=== PATIENT | female | born 1990 | race Caucasian/White ===

== ENCOUNTER 2016-03-07 23:57 | Emergency (ER) | payer SELFPAY ==
[~2016-03-07] VITALS: Ht 160 cm; Wt 45.0 kg
[~2016-03-07 23:57] MED LIST: ZOFR4TAB3 SL
[2016-03-08 00:09] VITALS: BP 140/95; PULSE 98; RESP 15; TEMP 98; O2SAT 98
--- NOTE | 2016-03-08 00:24 | PD ---
HPI Chief Complaint: Lump, Cyst, Hernia Time Seen by Provider: 00:15 Travel History International Travel<30 days: No Contact w/Intl Traveler<30days: No Traveled to known affect area: No History of Present Illness HPI This patient was examined in the presence of a female nurse. 25-year-old female presents for evaluation of an abscess in the left groin. Symptoms started 3 days ago. The pain is throbbing, constant, worse with palpation. She does endorse shaving in the genital region on a regular basis, most recently 4 days ago. Denies any drainage, vaginal discharge, fever/chills. She has no significant past medical history. No other complaints at this time. PFSH Past Medical History Hx Anticoagulant Therapy: No Anxiety: Yes Depression: Yes Cardiovascular Problems: No Chemotherapy: No Cerebrovascular Accident: No Diabetes: No Diminished Hearing: No Psychiatric: Yes Respiratory: No Immunizations Current: No Tetanus Vaccination: Unknown Influenza Vaccination: No ?: Not LMP: 02/04/16 : 1 Para: 0 Miscarriage: 1 : 0 Past Surgical History Hysterectomy: No Social History Alcohol Use: Yes Tobacco Use: No Substance Use: No (denies) Allergies-Medications (Allergen,Severity, Reaction): Coded Allergies: No Known Allergies (Unverified , 03/08/16) Reported Meds & Prescriptions Reported Meds & Active Scripts Active Keflex (Cephalexin) 500 Mg Cap 500 Mg PO Q6H 10 Days Bactrim DS (Sulfamethoxazole-Trimethoprim) 800-160 Mg Tab 1 Tab PO BID Zofran Odt (Ondansetron Odt) 4 Mg Tab 4 Mg SL Q6HR PRN Review of Systems Except as stated in HPI: all other systems reviewed are Neg Physical Exam Narrative Examined in the presence of a female nurse GENERAL: Well-developed well-nourished female in no acute distress SKIN: Warm and dry. In the left labial fold at the 2 o'clock position there is a 3 cm area of cutaneous fluctuance which is tender to palpation. No drainage. CARDIOVASCULAR: Regular rate and rhythm. No murmur appreciated. RESPIRATORY: No accessory muscle use. Clear to auscultation. Breath sounds equal bilaterally. Data Data Last Documented VS Vital Signs Date Time Temp Pulse Resp B/P Pulse Ox O2 Delivery O2 Flow Rate FiO2 03/08/16 00:09 98.0 98 15 140/95 98 Room Air Orders Lidocai-Epi 1%-1:100,000 Inj (Xylocaine- (03/08/16 00:30) Wound Culture And Gram Stain (03/08/16 00:21) Sulfamet-Trimeth Ds 800-160 Mg (Bactrim (03/08/16 00:45) Cephalexin (Keflex) (03/08/16 00:45) Acetamin-Hydrocod 325-5 Mg ([place] 5-325 (03/08/16 00:45) Ondansetron Odt (Zofran Odt) (03/08/16 00:45) [facility] Medical Decision Making Medical Screen Exam Complete: Yes Emergency Medical Condition: Yes Medical Record Reviewed: Yes Differential Diagnosis Left labial abscess, Bartholin gland cyst, cellulitis Narrative Course 25-year-old female presents with soft tissue swelling and tenderness to the left upper labial fold for the past 3 days. Examination reveals a left upper labial abscess. The patient verbally consents to incision and drainage. She understands the risk of scarring. Procedure was performed successfully. Wound culture performed. The patient will be discharged with Bactrim, Keflex. Discussed signs and symptoms of worsening infection noted or to return to the emergency room. Procedures Procedure Narrative INCISION AND DRAINAGE OF ABSCESS: The area was prepped and was sterilely draped. A subcutaneous wheal of 1% Xylocaine with epinephrine with a total number 7 mL was used to anesthetize the area. The area was properly anesthetized. A number 11 scalpel was used to make a 1 -cm incision across the area of the abscess. Cultures were obtained. The abscess was drained an irrigated with normal saline. Diagnosis Primary Impression: Labial abscess Additional Instructions: Take the antibiotics as prescribed. Warm baths 2-3 times a day 15 minutes at a time. Keep area clean and covered. Monitor for signs of worsening infection such as increasing redness, increasing swelling, fevers which would warrant return to the emergency room. Med/Other Pt SpecificInfo: Prescription(s) given, Wound Care Scripts Cephalexin (Keflex)500 Mg [id number] Mg PO Q6H 10 Days Ref 0 Prov:Arley Dinh MD 03/08/16 Sulfamethoxazole-Trimethoprim (Bactrim DS)800-160 Mg Tab1 Tab PO BID #20 TAB Ref 0 Prov:Arley Dinh MD 03/08/16 Disposition: 01 DISCHARGE HOME Condition: Stable Constantine Duran Mar 08, 2016 00:24
[2016-03-08] MEDS ORDERED: LIDOCAINE 1%/EPINEPHrine 1:100,000 SOLN 20 ML VIAL INFIL ONE (00:30)
[2016-03-08] MEDS ORDERED: SULFAMETHOXAZOLE-TRIMETHOPRIM DS 800-160 MG TAB PO ONE (00:45)
[2016-03-08] MEDS ORDERED: ONDANSETRON ODT 4 MG TAB PO ONE (00:45)
[2016-03-08] MEDS ORDERED: ACETAMINOPHEN/HYDROcodone 325 MG/5 MG TAB PO ONE (00:45)
[2016-03-08] MEDS ORDERED: CEPHALEXIN MONOHYDRATE 500 MG CAP PO ONE (00:45)
[2016-03-08] MEDS ORDERED: CEPH-460 PO (00:51)
[2016-03-08] MEDS ORDERED: BACT800T5 PO (00:51)
== END 2016-03-08 01:25 | disposition home or self-care (01) ==
LOC: NEPB 23:57
DX: N76.4 Abscess of vulva (principal); B96.89 Other specified bacterial agents as the cause of diseases classified elsewhere; Z86.59 Personal history of other mental and behavioral disorders
CPT/HCPCS: 56405; 86403; 87070; 87185

== ENCOUNTER 2016-04-12 11:29 | Emergency (ER) | payer SELFPAY ==
[~2016-04-12] VITALS: Ht 160 cm; Wt 45.0 kg
[~2016-04-12 11:29] MED LIST changes: +BACT800T5 PO; +CEPH-460 PO
[2016-04-12 11:30] VITALS: BP 116/67; PULSE 82; RESP 20; TEMP 98.1; O2SAT 100
--- NOTE | 2016-04-12 11:51 | PD ---
HPI Chief Complaint: Skin Problem Time Seen by Provider: 11:51 Travel History International Travel<30 days: No Contact w/Intl Traveler<30days: No Traveled to known affect area: No History of Present Illness HPI 25-year-old female presents to the emergency Department with rash to both feet, ankles, lower legs, and hands or arms over the past week. Patient recently moved is questioning whether she has been exposed to something, or has had bites from bed bugs or fleas. She denies fever, chills, recent viral illness, difficulty breathing, sneezing, or watery eyes. Patient denies any recent exposures other than moving and cleaning supplies. She has no other acute complaints. No known drug allergies. PFSH Past Medical History Hx Anticoagulant Therapy: No Anxiety: Yes Depression: Yes Cardiovascular Problems: No Chemotherapy: No Cerebrovascular Accident: No Diabetes: No Diminished Hearing: No Psychiatric: Yes Respiratory: No Immunizations Current: No ?: Not LMP: CURRENTLY ON PERIOD : 1 Para: 0 Miscarriage: 1 : 0 Past Surgical History Hysterectomy: No Social History Alcohol Use: Yes Tobacco Use: No Substance Use: No (denies) Allergies-Medications (Allergen,Severity, Reaction): Coded Allergies: No Known Allergies (Unverified , 04/12/16) Reported Meds & Prescriptions Reported Meds & Active Scripts Active Benadryl Allergy (Diphenhydramine HCl) 25 Mg Tab 25 Mg PO Q6H PRN 10 Days Qing Allergy (Fexofenadine HCl) 180 Mg Tab 180 Mg PO DAILY Keflex (Cephalexin) 500 Mg Cap 500 Mg PO Q6H 10 Days Bactrim DS (Sulfamethoxazole-Trimethoprim) 800-160 Mg Tab 1 Tab PO BID Zofran Odt (Ondansetron Odt) 4 Mg Tab 4 Mg SL Q6HR PRN Review of Systems Except as stated in HPI: all other systems reviewed are Neg General / Constitutional: No: Fever Eyes: No: Visual changes HENT: No: Headaches Cardiovascular: No: Chest Pain or Discomfort Respiratory: No: Shortness of Breath Gastrointestinal: No: Abdominal Pain Genitourinary: No: Dysuria Musculoskeletal: No: Pain Skin: Positive Rash, Positive Itching Neurologic: No: Weakness Psychiatric: No: Depression Endocrine: No: Polydipsia Hematologic/Lymphatic: No: Easy Bruising Physical Exam Narrative GENERAL: Patient appears no acute distress. SKIN: Warm and dry. Normal color. Normal turgor. Patient has somewhat raised erythematous "blotches" to the top of her toes, dorsal distal feet, twisting her fingers and on her wrist consistent with atopic dermatitis. I see no signs of scabies or insect bites at this time. HEAD: Atraumatic. Normocephalic. EYES: Pupils equal and round. No scleral icterus. No injection or drainage. ENT: No nasal bleeding or discharge. Mucous membranes pink and moist. Airway is patent. Pharynx is normal. No sinus symptoms. TMs are clear bilaterally. NECK: Trachea midline. No JVD. CARDIOVASCULAR: Regular rate and rhythm. RESPIRATORY: No accessory muscle use. Clear to auscultation. Breath sounds equal bilaterally. MUSCULOSKELETAL: Extremities without clubbing, cyanosis, or edema. No obvious deformities. NEUROLOGICAL: Awake and alert. No obvious cranial nerve deficits. Motor grossly within normal limits. Five out of 5 muscle strength in the arms and legs. Normal speech. PSYCHIATRIC: Appropriate mood and affect; insight and judgment normal. Data Data Last Documented VS Vital Signs Date Time Temp Pulse Resp B/P Pulse Ox O2 Delivery O2 Flow Rate FiO2 04/12/16 11:30 98.1 82 20 116/67 100 Room Air MDM Medical Decision Making Medical Screen Exam Complete: Yes Emergency Medical Condition: Yes Differential Diagnosis Rash. Atopic dermatitis. Insect bites. Narrative Course Patient is Stable at time of exam. Patient is given prescription for Qing 180 mg daily. Patient is given a prescription for Benadryl 25 mg one every 6 hours when necessary itch. Patient is recommended to use [id number] Caladryl lotion. Patient follow-up with primary care physician or return to emergency department as needed. Diagnosis Primary Impression: Dermatitis Referrals: [facility] Patient Instructions: General Instructions Additional Instructions: Patient is given prescription for Qing 180 mg daily. Patient is given a prescription for Benadryl 25 mg one every 6 hours when necessary itch. Patient is recommended to use [id number] Caladryl lotion. Patient follow-up with primary care physician or return to emergency department as needed. Med/Other Pt SpecificInfo: Prescription(s) given Scripts Diphenhydramine (Benadryl Allergy)25 Mg Tab25 Mg PO Q6H PRN (ALLERGIES) 10 Days Ref 0 Prov:Caleb Silverio MD 04/12/16 Fexofenadine (Qing Allergy)180 Mg [id number] Mg PO DAILY #30 TAB Ref 0 Prov:Caleb Silverio MD 04/12/16 Disposition: 01 DISCHARGE HOME Condition: Stable Dimitry Jamil Apr 12, 2016 11:51
[2016-04-12] MEDS ORDERED: BENA25TA3 PO (12:42)
[2016-04-12] MEDS ORDERED: FEXO15TA PO (12:42)
== END 2016-04-12 13:06 | disposition home or self-care (01) ==
LOC: NEPB 11:29
DX: L30.9 Dermatitis, unspecified (principal)
CPT/HCPCS: 99283

== ENCOUNTER 2016-06-17 00:21 | Emergency (ER) | payer SELFPAY ==
[~2016-06-17 00:21] MED LIST changes: +BENA25TA3 PO; +FEXO15TA PO
[2016-06-17 00:22] VITALS: BP 129/82; PULSE 89; RESP 16; TEMP 98.9; O2SAT 98
[2016-06-17 01:56] VITALS: BP 135/69; PULSE 74; RESP 18; O2SAT 99
--- NOTE | 2016-06-17 02:30 | PD ---
HPI Chief Complaint: Bleeding Time Seen by Provider: 01:59 Travel History International Travel<30 days: No Contact w/Intl Traveler<30days: No Traveled to known affect area: No History of Present Illness HPI This is a 25-year-old female who presents to the emergency department with 2 weeks of vaginal bleeding. She says she's been changing a pad every half hour, constant, severe, associated with intermittent lower abdominal cramping. She also says she has burning when she used like someone is stabbing her in the urethra. She says intermittently she feels somewhat lightheaded and dizzy. She says normally her periods are regular. She doesn't think she could've been . PFSH Past Medical History Medical History: Denies Significant Hx Hx Anticoagulant Therapy: No Anxiety: Yes Depression: Yes Cardiovascular Problems: No Chemotherapy: No Cerebrovascular Accident: No Diabetes: No Diminished Hearing: No Psychiatric: Yes Respiratory: No Immunizations Current: No Tetanus Vaccination: Unknown Influenza Vaccination: No ?: Not LMP: 06/10/16 : 1 Para: 0 Miscarriage: 1 : 0 Past Surgical History Surgical History: No Previous Surgery Hysterectomy: No Social History Alcohol Use: Yes (occ) Tobacco Use: No Substance Use: No (denies) Allergies-Medications (Allergen,Severity, Reaction): Coded Allergies: No Known Allergies (Unverified , 06/17/16) Reported Meds & Prescriptions Reported Meds & Active Scripts Active No Active Prescriptions or Reported Medications Review of Systems Except as stated in HPI: all other systems reviewed are Neg Physical Exam Narrative GENERAL:Well appearing, no acute distress SKIN: Focused skin assessment warm and dry. HEAD: Atraumatic. Normocephalic. EYES: Pupils equal and round. No injection or drainage. ENT: Moist mucous membranes NECK: Trachea midline. CARDIOVASCULAR: Regular rate and rhythm. No murmur appreciated. RESPIRATORY: Clear to auscultation. Breath sounds equal bilaterally. GASTROINTESTINAL: Abdomen soft, non-tender, nondistended. MUSCULOSKELETAL: No obvious deformities. NEUROLOGICAL: Awake and alert. No obvious cranial nerve deficits. Moving all extremities. PSYCHIATRIC: Appropriate mood and affect; insight and judgment normal. Data Data Last Documented VS Vital Signs Date Time Temp Pulse Resp B/P Pulse Ox O2 Delivery O2 Flow Rate FiO2 06/17/16 01:56 74 18 135/69 99 Room Air 06/17/16 00:22 98.9 Orders Complete Blood Count With Diff (06/17/16 02:17) Ed Urine Pregnancytest Poc (06/17/16 02:17) Urinalysis - C+S If Indicated (06/17/16 02:17) Urine Culture (06/17/16 02:45) Labs Laboratory Tests Test 06/17/16 02:45 White Blood Count 8.8 TH/MM3 Red Blood Count 4.68 MIL/MM3 Hemoglobin 13.2 GM/DL Hematocrit 39.9 % Mean Corpuscular Volume 85.4 FL Mean Corpuscular Hemoglobin 28.3 PG Mean Corpuscular Hemoglobin 33.2 % Concent Red Cell Distribution Width 13.1 % Platelet Count 287 TH/MM3 Mean Platelet Volume 8.9 FL Neutrophils (%) (Auto) 59.7 % Lymphocytes (%) (Auto) 31.1 % Monocytes (%) (Auto) 5.5 % Eosinophils (%) (Auto) 3.0 % Basophils (%) (Auto) 0.7 % Neutrophils # (Auto) 5.3 TH/MM3 Lymphocytes # (Auto) 2.7 TH/MM3 Monocytes # (Auto) 0.5 TH/MM3 Eosinophils # (Auto) 0.3 TH/MM3 Basophils # (Auto) 0.1 TH/MM3 CBC Comment DIFF FINAL Differential Comment Urine Color RED Urine Turbidity HAZY Urine pH 5.5 Urine Specific [place] 1.026 Urine Protein 30 mg/dL Urine Glucose (UA) NEG mg/dL Urine Ketones TRACE mg/dL Urine Occult Blood LARGE Urine Nitrite NEG Urine Bilirubin NEG Urine Urobilinogen LESS THAN 2.0 MG/DL Urine Leukocyte Esterase SMALL Urine RBC /hpf Urine WBC 44 /hpf Urine Squamous Epithelial 2 /hpf Cells Urine Bacteria RARE /hpf Urine Mucus MANY /lpf Microscopic Urinalysis Comment CULTURE INDICATED MDM Medical Decision Making Medical Screen Exam Complete: Yes Emergency Medical Condition: Yes Interpretation(s) Afebrile, no tachycardia, normotensive No leukocytosis Urinalysis: Urinary tract infection Differential Diagnosis Menorrhagia, miscarriage, anemia, ectopic Narrative Course This is a 25-year-old female who presents to the emergency department with vaginal bleeding that's been going on for 2 weeks associated with some dysuria. Patient was placed on a monitor and an IV was established. Labs are obtained which demonstrated normal hemoglobin. Urinalysis is consistent with infection as are her symptoms. Pelvic exam demonstrates a moderate amount of bleeding with no brisk arterial bleeding. Patient can safely be discharged and follow- up with a fishing rod mechanic. She'll be given a prescription for antibiotics for her urinary tract infection. Diagnosis Primary Impression: Menorrhagia Qualified Code: N92.1 - Menorrhagia with irregular cycle Patient Instructions: General Instructions Additional Instructions: Heavy bleeding can be caused by many things including: - One of your ovaries not releasing an egg during one or more months - Growths in the uterus called fibroids - A bleeding disorder that prevents your blood from clotting normally - Side effects of some medicines, such as some types of control or blood thinners - A problem with your thyroid (a gland that makes hormones) Return to the emergency department if you: Need to use both tampons and pads at the same time because you are bleeding so much Need to change your pad or tampon during the night Or are feeling lightheaded, weak, dizzy, have chest pain, shortness of breath or are having difficulty exerting yourself Follow up with [facility] at: [facility] [address] [place] [address] Office Hours Friday 9:00 am 5:30 pm Friday 8:00 am 12:00 pm Tuesdays 4:00 6:30 pm Med/Other Pt SpecificInfo: Prescription(s) given Scripts Cephalexin (Keflex)500 Mg [id number] Mg PO Q12H 7 Days Ref 0 Prov:Kim Holt MD 06/17/16 Disposition: 01 DISCHARGE HOME Condition: Stable Kim Holt MD June 17, 2016 02:30
[2016-06-17 02:53] LABS: AUTOMATED NEUTROPHIL # 5.3 TH/MM3 (1.8-7.7); BASOPHIL # 0.1 TH/MM3 (0-0.2); BASOPHIL % 0.7 % (0.0-2.0); EOSINOPHIL # 0.3 TH/MM3 (0-0.4); HEMATOCRIT 39.9 % (35.0-46.0); HEMO FLAGS DIFF FINAL; LYMPH % 31.1 % (9.0-44.0); LYMPHOCYTE # 2.7 TH/MM3 (1.0-4.8); MEAN CELL VOLUME 85.4 FL (80.0-100.0); MEAN CORPUSCULAR HEMOGLOBIN 28.3 PG (27.0-34.0); MEAN CORPUSCULAR HGB CONC 33.2 % (32.0-36.0); MONO % 5.5 % (0.0-8.0); NEUT % 59.7 % (16.0-70.0); PLATELET COUNT 287 TH/MM3 (150-450); RED BLOOD COUNT 4.68 MIL/MM3 (4.00-5.30); RED CELL DISTRIBUTION WIDTH 13.1 % (11.6-17.2); WHITE BLOOD COUNT 8.8 TH/MM3 (4.0-11.0)
[2016-06-17 03:02] LABS: BACTERIA, URINE RARE /hpf; BLOOD, URINE LARGE (NEG); COMMENT (UR) CULTURE INDICATED; CULTURE IF INDICATED CULTURE INDICATED; GLUCOSE,URINE NEG (NEG); KETONE, URINE TRACE mg/dL (NEG); MUCUS URINE MANY /lpf (OCC); NITRITE,URINE NEG (NEG); PH, URINE 5.5 (5.0-8.5); SQUAMOUS EPITHELIAL CELL URINE 2 /hpf (0-5)
[2016-06-17 03:03] LABS: URINE COLOR RED (YELLW/STRAW)
[2016-06-17 03:48] VITALS: BP 122/71; PULSE 67; RESP 18; TEMP 98.1; O2SAT 100
[2016-06-17] MEDS ORDERED: CEPH-460 PO ×2 (03:50→03:53)
== END 2016-06-17 04:25 | disposition home or self-care (01) ==
LOC: NEPC 00:21
DX: N92.0 Excessive and frequent menstruation with regular cycle (principal); N39.0 Urinary tract infection, site not specified; B96.89 Other specified bacterial agents as the cause of diseases classified elsewhere
CPT/HCPCS: 81001; 84703; 85025; 87086; 99284

== ENCOUNTER 2016-07-22 02:15 | Emergency (ER) | payer SELFPAY ==
[~2016-07-22] VITALS: Ht 160 cm; Wt 55.0 kg
[~2016-07-22 02:15] MED LIST changes: -BACT800T5 PO; -BENA25TA3 PO; -FEXO15TA PO; -ZOFR4TAB3 SL
[2016-07-22 02:17] VITALS: BP 116/68; PULSE 72; RESP 16; TEMP 98.1; O2SAT 100
[2016-07-22] MEDS ORDERED: CEPH-460 PO (03:10)
--- NOTE | 2016-07-22 03:10 | PD ---
HPI Chief Complaint: Skin Problem Time Seen by Provider: 02:59 Travel History International Travel<30 days: No Contact w/Intl Traveler<30days: No Traveled to known affect area: No History of Present Illness HPI Patient is a 25-year-old female presents with a painful sore in the right inguinal region. States been present for the past few days and did start draining and now is just painful. Denies any fever denies any vaginal bleeding vaginal discharge dysuria. Denies any history of STDs. States the pain is minimal to moderate. PFSH Past Medical History Hx Anticoagulant Therapy: No Anxiety: Yes Depression: Yes Cardiovascular Problems: No Chemotherapy: No Cerebrovascular Accident: No Diabetes: No Diminished Hearing: No Psychiatric: Yes Respiratory: No Immunizations Current: No Tetanus Vaccination: Unknown Influenza Vaccination: No ?: Not LMP: 07/15/16 : 1 Para: 0 Miscarriage: 1 : 0 Past Surgical History Surgical History: No Previous Surgery Hysterectomy: No Social History Alcohol Use: Yes (occ) Tobacco Use: No Substance Use: No (denies) Allergies-Medications (Allergen,Severity, Reaction): Coded Allergies: No Known Allergies (Unverified , 06/17/16) Reported Meds & Prescriptions Reported Meds & Active Scripts Active Keflex (Cephalexin) 500 Mg Cap 500 Mg PO Q6H 7 Days Keflex (Cephalexin) 500 Mg Cap 500 Mg PO Q12H 7 Days Review of Systems Except as stated in HPI: all other systems reviewed are Neg Physical Exam Narrative GENERAL: Well-nourished, well-developed patient. SKIN: Focused skin assessment warm/dry. His very small less than 1 cm in diameter area of swelling of the right inguinal region. No surrounding erythema or induration. The skin on top is beginning to ulcerate and is raw. No fluctuance is noted. The pubic area is shaved, this exam was performed with female nurse remote sensing scientist present at all times. HEAD: Normocephalic. EYES: No scleral icterus. No injection or drainage. NECK: Supple, trachea midline. No JVD or lymphadenopathy. CARDIOVASCULAR: Regular rate and rhythm without murmurs, gallops, or rubs. RESPIRATORY: Breath sounds equal bilaterally. No accessory muscle use. GASTROINTESTINAL: Abdomen soft, non-tender, nondistended. MUSCULOSKELETAL: No cyanosis, or edema. BACK: Nontender without obvious deformity. No CVA tenderness. Data Data Last Documented VS Vital Signs Date Time Temp Pulse Resp B/P Pulse Ox O2 Delivery O2 Flow Rate FiO2 07/22/16 03:03 18 07/22/16 02:17 98.1 72 116/68 100 Room Air MDM Medical Decision Making Medical Screen Exam Complete: Yes Emergency Medical Condition: Yes Differential Diagnosis Folliculitis, healing abscess, cyst, LGV seems unlikely. Narrative Course Patient was roomed emergency department, she has what appears to be healing small abscess to the right groin, probably associated with recent shaving, discussed symptomatic management antibiotic therapy and follow up needed with a primary care physician as well as an JAVA ENGINEER. There is no indication for internal exam at this time. She is stable for discharge. Diagnosis Primary Impression: Abscess Med/Other Pt SpecificInfo: Prescription(s) given Scripts Cephalexin (Keflex)500 Mg [id number] Mg PO Q6H 7 Days Ref 0 Prov:Jos Clements MD 07/22/16 Disposition: 01 DISCHARGE HOME Condition: Stable Jos Clements MD Jul 22, 2016 03:10
== END 2016-07-22 03:39 | disposition home or self-care (01) ==
LOC: NEPC 02:15
DX: L02.214 Cutaneous abscess of groin (principal)
CPT/HCPCS: 99283

== ENCOUNTER 2016-08-31 17:06 | Emergency (ER) | payer SELFPAY ==
[~2016-08-31] VITALS: Ht 170.2 cm; Wt 55.0 kg
[2016-08-31 17:29] VITALS: BP 145/94; PULSE 69; RESP 20; O2SAT 100
[2016-08-31] MEDS ORDERED: ONDANSETRON HCL 4 MG/2 ML VIAL ONE (17:33)
[2016-08-31] MEDS ORDERED: SODIUM CHLOR 0.9% 1000 ML INJ 1,000 ML IV SCH (17:33)
[2016-08-31] MEDS ORDERED: ONDANSETRON HCL 4 MG/2 ML VIAL IM ONE (17:45)
[2016-08-31] MEDS ORDERED: LOPERAMIDE HCL 2 MG CAP PO ONE (17:45)
[2016-08-31] MEDS ORDERED: SODIUM CHLORIDE 0.9% FLUSH 10 ML FLUSH IV FLUSH PRN (17:45)
[2016-08-31] MEDS ORDERED: LORazepam 2 MG/ML VIAL IV PUSH ONE (17:45)
--- NOTE | 2016-08-31 17:53 | PD ---
HPI Chief Complaint: GI Complaint Time Seen by Provider: 17:26 Travel History International Travel<30 days: No Contact w/Intl Traveler<30days: No Traveled to known affect area: No History of Present Illness HPI To 25-year-old woman who presents to the emergency department apparently dropped off by a neighbor after she was found throwing up on her porch. She is tearful and crying but one really answer any questions. States she was drinking alcohol yesterday. Denies any drug use. Sounds like she is only been sick for today but she will really tell us. She wants also been anyone else sick. She won't tell us if she is withdrawing from any drugs, although she seems to deny any drug use. She will tell us how she got here. History Past Medical History Narrative Medical Unknown LMP: ONE WEEK AGO : 1 Para: 0 Social History Alcohol Use: Yes (occ) Tobacco Use: No Allergies-Medications (Allergen,Severity, Reaction): Coded Allergies: No Known Allergies (Unverified , 08/31/16) Reported Meds & Prescriptions Reported Meds & Active Scripts Active Review of Systems ROS Limitations: Uncooperative Physical Exam Narrative GENERAL: 25-year-old woman, tearful and crying, would not answer any questions. SKIN: Focused skin assessment warm/dry. Some piloerection. HEAD: Atraumatic. Normocephalic. EYES: Pupils equal and round. No scleral icterus. No injection or drainage. ENT: No nasal bleeding or discharge. Mucous membranes pink and moist. NECK: Trachea midline. No JVD. CARDIOVASCULAR: Regular rate and rhythm. No murmur appreciated. RESPIRATORY: No accessory muscle use. Clear to auscultation. Breath sounds equal bilaterally. GASTROINTESTINAL: Abdomen is flat and soft. No grimace with palpation. MUSCULOSKELETAL: No obvious deformities. No clubbing. No cyanosis. No edema. NEUROLOGICAL: Awake and alert, but appears delirious or intoxicated. She is able to walk to the bathroom unassisted. She moves all extremities without focal deficit. Data Data Last Documented VS Vital Signs Date Time Temp Pulse Resp B/P Pulse Ox O2 Delivery O2 Flow Rate FiO2 08/31/16 17:29 69 20 145/94 100 Room Air Orders Ondansetron Inj (Zofran Inj) (08/31/16 17:45) Ondansetron Inj (Zofran Inj) (08/31/16 17:33) Beta Hcg (Quant/Titer) (08/31/16 17:33) Complete Blood Count With Diff (08/31/16 17:33) Comprehensive Metabolic Panel (08/31/16 17:33) Lipase (08/31/16 17:33) Iv Access Insert/Monitor (08/31/16 17:33) Sodium Chlor 0.9% 1000 Ml Inj (Ns 1000 M (08/31/16 17:33) Sodium Chloride 0.9% Flush (Ns Flush) (08/31/16 17:45) Alcohol (Ethanol) (08/31/16 17:33) Loperamide (Imodium) (08/31/16 17:45) Lorazepam Inj (Ativan Inj) (08/31/16 17:45) Labs Laboratory Tests Test 08/31/16 18:05 White Blood Count 16.0 TH/MM3 Red Blood Count 4.42 MIL/MM3 Hemoglobin 12.9 GM/DL Hematocrit 38.3 % Mean Corpuscular Volume 86.6 FL Mean Corpuscular Hemoglobin 29.1 PG Mean Corpuscular Hemoglobin 33.6 % Concent Red Cell Distribution Width 12.8 % Platelet Count 308 TH/MM3 Mean Platelet Volume 8.6 FL Neutrophils (%) (Auto) 88.3 % Lymphocytes (%) (Auto) 8.3 % Monocytes (%) (Auto) 3.0 % Eosinophils (%) (Auto) 0.1 % Basophils (%) (Auto) 0.3 % Neutrophils # (Auto) 14.2 TH/MM3 Lymphocytes # (Auto) 1.3 TH/MM3 Monocytes # (Auto) 0.5 TH/MM3 Eosinophils # (Auto) 0.0 TH/MM3 Basophils # (Auto) 0.1 TH/MM3 CBC Comment DIFF FINAL Differential Comment Sodium Level 140 MEQ/L Potassium Level 4.3 MEQ/L Chloride Level 109 MEQ/L Carbon Dioxide Level 20.5 MEQ/L Anion Gap 11 MEQ/L Blood Urea Nitrogen 10 MG/DL Creatinine 0.78 MG/DL Estimat Glomerular Filtration 91 ML/MIN Rate Random Glucose 96 MG/DL Calcium Level 8.9 MG/DL Total Bilirubin 0.7 MG/DL Aspartate Amino Transf 49 U/L (AST/SGOT) Alanine Aminotransferase 45 U/L (ALT/SGPT) Alkaline Phosphatase 41 U/L Total Protein 8.0 GM/DL Albumin 4.5 GM/DL Lipase 107 U/L Human Chorionic Gonadotropin, LESS THAN 1 Quant MIU/ML Ethyl Alcohol Level LESS THAN 3 MG/DL [facility] Medical Decision Making Medical Screen Exam Complete: Yes Emergency Medical Condition: Yes Interpretation(s) LABS: CBC remarkable for mild leukocytosis. Alcohol negative. CMP is unremarkable. Lipase is normal HCG is negative. Differential Diagnosis Intoxication, acute gastroenteritis, opiate withdrawal, pancreatitis, , other Narrative Course Medical decision making INITIAL 25 year-old woman who is here with what appears to be nausea vomiting and yellow watery diarrhea. A little bit frustrating to examine as she seems volitionally unwilling to talk to us. Not sure why, if she is trying to hide something like opiate withdrawal or if she is just a little bit hysterical being sick from gastroenteritis. We'll try to get a line on her. We gave her a dose of IM Zofran. We'll give her some IV fluid hydration. Diagnosis Primary Impression: Acute gastroenteritis Additional Instructions: Take Zofran as needed for nausea or vomiting. Take loperamide as needed for diarrhea. Return to the emergency department for any worsening abdominal pain, or any other new or worsening symptoms. Med/Other Pt SpecificInfo: Prescription(s) given Scripts Loperamide 2 Mg Cap2 Mg PO DIRECTED PRN (DIARRHEA) #8 CAP Ref 0 One capsule after each loose stool. Not to exceed 8 capsules per day. Prov:Arley Dinh MD 08/31/16 Ondansetron Odt (Zofran Odt)4 Mg Tab4 Mg SL Q8HR PRN (Nausea/Vomiting) #15 TAB May substitute non-ODT form. Prov:Arley Dinh MD 08/31/16 Disposition: 01 DISCHARGE HOME Condition: Stable Arley Dinh MD Aug 31, 2016 17:53
[2016-08-31 18:36] LABS: ALT (GPT) 45 U/L (10-53)
[2016-08-31 18:40] LABS: ALKALINE PHOSPHATASE 41 U/L (45-117); BETA HCG QUANT LESS THAN 1 MIU/ML (0-5); TOTAL BILIRUBIN ADULT 0.7 MG/DL (0.2-1.0)
[2016-08-31 18:47] LABS: AUTOMATED NEUTROPHIL # 14.2 TH/MM3 (1.8-7.7); BASOPHIL # 0.1 TH/MM3 (0-0.2); BASOPHIL % 0.3 % (0.0-2.0); EOSINOPHIL % 0.1 % (0.0-4.0); HEMATOCRIT 38.3 % (35.0-46.0); HEMO FLAGS DIFF FINAL; LYMPH % 8.3 % (9.0-44.0); LYMPHOCYTE # 1.3 TH/MM3 (1.0-4.8); MEAN CELL VOLUME 86.6 FL (80.0-100.0); MEAN CORPUSCULAR HEMOGLOBIN 29.1 PG (27.0-34.0); MEAN CORPUSCULAR HGB CONC 33.6 % (32.0-36.0); NEUT % 88.3 % (16.0-70.0); PLATELET COUNT 308 TH/MM3 (150-450); RED BLOOD COUNT 4.42 MIL/MM3 (4.00-5.30); RED CELL DISTRIBUTION WIDTH 12.8 % (11.6-17.2)
[2016-08-31 18:52] LABS: ANION GAP 11 MEQ/L (5-15); AST (GOT) 49 U/L (15-37); BICARBONATE 20.5 MEQ/L (21.0-32.0); BLOOD UREA NITROGEN 10 MG/DL (7-18); CHLORIDE 109 MEQ/L (98-107); GLOMERULAR FILTRATION RATE 91 ML/MIN (>89); POTASSIUM 4.3 MEQ/L (3.5-5.1); SODIUM (NA) 140 MEQ/L (136-145)
[2016-08-31] MEDS ORDERED: LOPE2CAP PO (19:14)
[2016-08-31] MEDS ORDERED: ZOFR4TAB3 SL (19:14)
[2016-08-31 20:05] VITALS: BP 102/52
== END 2016-08-31 20:16 | disposition home or self-care (01) ==
LOC: NEPD 17:06
DX: K52.9 Noninfective gastroenteritis and colitis, unspecified (principal)
CPT/HCPCS: 80053; 80307; 83690; 84702; 85025; 96361; 96372; 96374; 99284; J2060; J2405; J7030

== ENCOUNTER 2016-11-05 00:28 | Emergency (ER) | payer SELFPAY ==
[~2016-11-05] VITALS: Ht 160 cm; Wt 48.0 kg
[~2016-11-05 00:28] MED LIST changes: -CEPH-460 PO; +LOPE2CAP PO; +ZOFR4TAB3 SL
[2016-11-05 00:30] VITALS: BP 107/75; PULSE 96; RESP 15; TEMP 98.7; O2SAT 98
[2016-11-05] MEDS ORDERED: SODIUM CHLOR 0.9% 1000 ML INJ 1,000 ML IV ONE (01:10)
--- NOTE | 2016-11-05 01:11 | PD ---
HPI Chief Complaint: Headache Time Seen by Provider: 00:51 Travel History International Travel<30 days: No Contact w/Intl Traveler<30days: No Traveled to known affect area: No History of Present Illness HPI 26-year-old female with history of migraine headache, presents to the emergency department for evaluation of headache. Patient states she has had intermittent headache for the last 2 months. Denies any head trauma. No associated nausea. No focal deficits or weakness. She has not been recently ill. She denies any neck pain or stiffness. No photosensitivity. She has no other symptoms to report. PFSH Past Medical History Hx Anticoagulant Therapy: No Anxiety: Yes Depression: Yes Cardiovascular Problems: No Chemotherapy: No Cerebrovascular Accident: No Diabetes: No Diminished Hearing: No Psychiatric: Yes Respiratory: No Immunizations Current: No Tetanus Vaccination: Unknown Influenza Vaccination: No ?: Not LMP: 3 WEEKS AGO : 1 Para: 0 Miscarriage: 1 : 0 Past Surgical History Surgical History: No Previous Surgery Hysterectomy: No Social History Alcohol Use: Yes (occ) Tobacco Use: No Substance Use: No Allergies-Medications (Allergen,Severity, Reaction): Coded Allergies: No Known Allergies (Unverified , 11/05/16) Reported Meds & Prescriptions Reported Meds & Active Scripts Active No Active Prescriptions or Reported Medications Review of Systems Except as stated in HPI: all other systems reviewed are Neg Physical Exam Narrative GENERAL: Well-nourished female patient, in no acute distress SKIN: Focused skin assessment warm/dry. HEAD: Atraumatic. Normocephalic. EYES: Pupils equal and round. No scleral icterus. No injection or drainage. EOMI. PERRLA ENT: No nasal bleeding or discharge. Mucous membranes pink and moist. NECK: Trachea midline. No JVD. CARDIOVASCULAR: Regular rate and rhythm. No murmur appreciated. RESPIRATORY: No accessory muscle use. Clear to auscultation. Breath sounds equal bilaterally. GASTROINTESTINAL: Abdomen soft, non-tender, nondistended. Hepatic and splenic margins not palpable. MUSCULOSKELETAL: No obvious deformities. No clubbing. No cyanosis. No edema. NEUROLOGICAL: Awake and alert. No obvious cranial nerve deficits. Motor grossly within normal limits. Normal speech. Data Data Last Documented VS Vital Signs Date Time Temp Pulse Resp B/P (MAP) Pulse Ox O2 Delivery O2 Flow Rate FiO2 11/05/16 00:30 98.7 96 15 107/75 (86) 98 Room Air Orders Orders Ecg Monitoring (11/05/16 01:10) Iv Access Insert/Monitor (11/05/16 01:10) Oximetry (11/05/16 01:10) Sodium Chloride 0.9% Flush (Ns Flush) (11/05/16 01:15) Ketorolac Inj (Toradol Inj) (11/05/16 01:15) Diphenhydramine Inj (Benadryl Inj) (11/05/16 01:15) Metoclopramide Inj (Reglan Inj) (11/05/16 01:15) Sodium Chlor 0.9% 1000 Ml Inj (Ns 1000 M (11/05/16 01:10) MDM Medical Decision Making Medical Screen Exam Complete: Yes Emergency Medical Condition: Yes Medical Record Reviewed: Yes Differential Diagnosis Migraine with or without aura versus cluster headache versus tension headache Narrative Course 26 year-old female presents to emergency department for evaluation of a headache. Patient appears without distress. She has no focal deficits or weakness. This is likely a migraine headache. Patient will be medicated as such. Upon reassessment, patient is resting in the bed. She is awoken and reports resolution of her symptoms. I do encourage patient to follow-up with her primary care provider. If symptoms persist imaging may need to be completed. She agrees to return immediately with any acute worsening of symptoms. Diagnosis Primary Impression: Migraine Qualified Codes: G43.909 - Migraine, unspecified, not intractable, without status migrainosus Referrals: Primary Care Physician Patient Instructions: General Instructions, Migraine Headache (ED) Departure Forms: Tests/Procedures, Work Release Enter return to work date: Nov 07, 2016 Additional Instructions: FOLLOW UP WITH A PRIMARY CARE PROVIDER RETURN TO ED WITH ACUTE WORSENING OF SYMPTOMS Med/Other Pt SpecificInfo: No Change to Meds Scripts No Active Prescriptions or Reported Meds Disposition: DISCHARGE HOME Condition: Stable Akua HartP Nov 05, 2016 01:11
[2016-11-05] MEDS ORDERED: METOCLOPRAMIDE HCL 10 MG/2 ML VIAL IVP ONE (01:15)
[2016-11-05] MEDS ORDERED: diphenhydrAMINE HCL 50 MG/ML VIAL IVP ONE (01:15)
[2016-11-05] MEDS ORDERED: SODIUM CHLORIDE 0.9% FLUSH 10 ML FLUSH IVF PRN (01:15)
[2016-11-05] MEDS ORDERED: KETOROLAC TROMETHAMINE 30 MG/ML (IVP) VIAL IVP ONE (01:15)
== END 2016-11-05 03:32 | disposition home or self-care (01) ==
LOC: NEPD 00:28
DX: G43.909 Migraine, unspecified, not intractable, without status migrainosus (principal); F41.9 Anxiety disorder, unspecified
CPT/HCPCS: 96361; 96374; 96375; 99284; J1200; J1885; J2765; J7030

== ENCOUNTER 2016-12-05 16:55 | Emergency (ER) | payer SELFPAY ==
[~2016-12-05] VITALS: Ht 160 cm; Wt 50.0 kg
[2016-12-05 16:58] VITALS: BP 98/66; PULSE 71; RESP 16; TEMP 97.9; O2SAT 98
[2016-12-05] MEDS ORDERED: SODIUM CHLOR 0.9% 1000 ML INJ 1,000 ML IV ONE ×2 (18:12)
--- NOTE | 2016-12-05 18:12 | PD ---
HPI Chief Complaint: GI Complaint Time Seen by Provider: 17:58 Travel History International Travel<30 days: No Contact w/Intl Traveler<30days: No Traveled to known affect area: No History of Present Illness HPI 26-year-old female presents to the emergency Department with complaint of feeling weak and dizzy that started out proximally 2:30 or 3:00 this afternoon. She then vomited 3 times. Denies recent illness. Denies fever, abdominal pain, chest pain, shortness of breath, diarrhea. Says she felt like she was about to faint. Is still complaining of feeling weak and dizzy. Denies nausea at this time. Denies vaginal discharge, odor. Denies dysuria, urgency, or frequency. Denies pain. Is currently on her menses but states she was 2 and half weeks late. UPT at bedside is negative. Denies alcohol use. Denies drug use. She has not taken any medications or tried any treatments to alleviate her symptoms. Symptoms are mild in severity. No known relieving or aggravating factors. Has no established primary care provider. Denies past medical history. No known allergies. No other modifying factors or associated signs and symptoms. PFSH Past Medical History Hx Anticoagulant Therapy: No Anxiety: Yes Depression: Yes Cardiovascular Problems: No Chemotherapy: No Cerebrovascular Accident: No Diabetes: No Diminished Hearing: No Psychiatric: Yes Respiratory: No Immunizations Current: No ?: Unknown LMP: 12/01/16 : 1 Para: 0 Miscarriage: 1 : 0 Past Surgical History Surgical History: No Previous Surgery Hysterectomy: No Social History Alcohol Use: Yes (occ) Tobacco Use: No Substance Use: No Allergies-Medications (Allergen,Severity, Reaction): Coded Allergies: No Known Allergies (Unverified , 11/05/16) Reported Meds & Prescriptions Reported Meds & Active Scripts Active No Active Prescriptions or Reported Medications Review of Systems Except as stated in HPI: all other systems reviewed are Neg Physical Exam Narrative GENERAL: Well-nourished, well-developed female patient, in no acute distress SKIN: Warm and dry. HEAD: Atraumatic. Normocephalic. No facial droop noted. Tongue midline. EYES: Pupils equal and round at 3 mm with brisk reaction. No scleral icterus. No injection or drainage. PERRLA. EOMI. ENT: Mucosa pink and moist. No erythema or exudates. No uvular edema. No uvular , palatal, or tonsillar deviation. Airway patent. Nasal turbinates appear normal without nasal blood, purulent drainage or septal hematoma. EARS: Bilateral pinnae and external canals appear within normal limits. Bilateral tympanic membranes without erythema, dullness or perforation. NECK: Trachea midline. No lymphadenopathy. CARDIOVASCULAR: Regular rate and rhythm. No murmur appreciated. RESPIRATORY: No accessory muscle use. Clear to auscultation. Breath sounds equal bilaterally. GASTROINTESTINAL: Abdomen soft, non-tender, nondistended. Hepatic and splenic margins not palpable. Bowel sounds are active 4 quadrants. MUSCULOSKELETAL: No obvious deformities. No clubbing. No cyanosis. No edema. BACK: No CVA tenderness. NEUROLOGICAL: Awake and alert. Oriented 3. No obvious cranial nerve deficits. Motor grossly within normal limits. Normal speech. No ataxia. No mid -line drift. Moves all extremities. 5/5 strength to all extremities. PSYCHIATRIC: Appropriate mood and affect; insight and judgment normal. Data Data Last Documented VS Vital Signs Date Time Temp Pulse Resp B/P (MAP) Pulse Ox O2 Delivery O2 Flow Rate FiO2 12/05/16 18:27 97 Room Air 12/05/16 16:58 97.9 71 16 Orders Orders Electrocardiogram (12/05/16 18:12) Basic Metabolic Panel (Bmp) (12/05/16 18:12) Ed Urine Pregnancytest Poc (12/05/16 18:12) Complete Blood Count With Diff (12/05/16 18:12) Urinalysis - C+S If Indicated (12/05/16 18:12) Ecg Monitoring (12/05/16 18:12) Iv Access Insert/Monitor (12/05/16 18:12) Oximetry (12/05/16 18:12) Sodium Chloride 0.9% Flush (Ns Flush) (12/05/16 18:15) Sodium Chlor 0.9% 1000 Ml Inj (Ns 1000 M (12/05/16 18:12) Drug Screen, Random Urine (12/05/16 18:12) Urine Culture (12/05/16 18:15) Labs Laboratory Tests Test 12/05/16 18:15 White Blood Count 13.4 TH/MM3 Red Blood Count 4.31 MIL/MM3 Hemoglobin 12.6 GM/DL Hematocrit 37.4 % Mean Corpuscular Volume 86.7 FL Mean Corpuscular Hemoglobin 29.2 PG Mean Corpuscular Hemoglobin Concent 33.6 % Red Cell Distribution Width 13.1 % Platelet Count 280 TH/MM3 Mean Platelet Volume 8.9 FL Neutrophils (%) (Auto) 84.0 % Lymphocytes (%) (Auto) 9.4 % Monocytes (%) (Auto) 4.5 % Eosinophils (%) (Auto) 1.8 % Basophils (%) (Auto) 0.3 % Neutrophils # (Auto) 11.3 TH/MM3 Lymphocytes # (Auto) 1.3 TH/MM3 Monocytes # (Auto) 0.6 TH/MM3 Eosinophils # (Auto) 0.2 TH/MM3 Basophils # (Auto) 0.0 TH/MM3 CBC Comment DIFF FINAL Differential Comment Urine Color YELLOW Urine Turbidity HAZY Urine pH 5.5 Urine Specific [place] 1.025 Urine Protein 30 mg/dL Urine Glucose (UA) NEG mg/dL Urine Ketones NEG mg/dL Urine Occult Blood LARGE Urine Nitrite NEG Urine Bilirubin NEG Urine Urobilinogen 2.0 MG/DL Urine Leukocyte Esterase MOD Urine RBC 4 /hpf Urine WBC 98 /hpf Urine Squamous Epithelial Cells 18 /hpf Urine Bacteria RARE /hpf Urine Mucus MANY /lpf Microscopic Urinalysis Comment CULTURE INDICATED Blood Urea Nitrogen 13 MG/DL Creatinine 0.78 MG/DL Random Glucose 103 MG/DL Calcium Level 9.1 MG/DL Sodium Level 139 MEQ/L Potassium Level 3.4 MEQ/L Chloride Level 105 MEQ/L Carbon Dioxide Level 28.9 MEQ/L Anion Gap 5 MEQ/L Estimat Glomerular Filtration Rate 90 ML/MIN [facility] Medical Decision Making Medical Screen Exam Complete: Yes Emergency Medical Condition: Yes Medical Record Reviewed: Yes Differential Diagnosis Anemia, electrolyte imbalance, dehydration, dizziness Narrative Course 26-year-old female with weakness and dizziness. Vomited earlier 3. Denies recent illness. Current complaint is nausea feeling weak and dizzy. UPT negative. IV site obtained. CBC, BMP, EKG, urinalysis, normal saline bolus ordered. 1826: EKG with normal sinus rhythm; without ST segment elevation or depression ; reviewed by Dr. Borjas. 1922: CBC with slight leukocytosis of 13.4. Potassium 3.4. Potassium chloride 20 MEQ by mouth administered in the ER. Otherwise, BMP unremarkable. Urinalysis with signs of infection. Keflex prescribed for home. Instructed patient to follow up with primary care provider. Patient verbalizes understanding and agreement with treatment plan. Patient is medically cleared and stable for discharge. Discussed reasons to return to the emergency department. Patient agrees with treatment plan. The patients vital signs are stable and the patient is stable for outpatient follow-up and treatment. Patient discharged home, stable and in no acute distress. Diagnosis Primary Impression: UTI (urinary tract infection) Qualified Codes: N39.0 - Urinary tract infection, site not specified Additional Impression: Hypokalemia Referrals: Primary Care Physician Patient Instructions: General Instructions, Hypokalemia (ED), Urinary Tract Infection in Women (ED) Additional Instructions: Take antibiotics as prescribed and complete full course Drink plenty of fluids Maintain good personal hygiene Follow-up with primary care provider Return to the emergency department immediately with worsening of symptoms Med/Other Pt SpecificInfo: Prescription(s) given Scripts Cephalexin (Keflex) 500 Mg Cap 500 MG PO Q12H for Infection for 7 Days, #14 CAP 0 Refills Prov: Philomena Hastings 12/05/16 Disposition: 01 DISCHARGE HOME Condition: Stable Philomena Hastings Dec 05, 2016 18:12
[2016-12-05] MEDS ORDERED: SODIUM CHLORIDE 0.9% FLUSH 10 ML FLUSH IVF PRN ×2 (18:15)
[2016-12-05 18:27] VITALS: O2SAT 97
[2016-12-05 18:36] LABS: AUTOMATED NEUTROPHIL # 11.3 TH/MM3 (1.8-7.7); BASOPHIL % 0.3 % (0.0-2.0); EOSINOPHIL # 0.2 TH/MM3 (0-0.4); EOSINOPHIL % 1.8 % (0.0-4.0); HEMATOCRIT 37.4 % (35.0-46.0); HEMOGLOBIN 12.6 GM/DL (11.6-15.3); LYMPH % 9.4 % (9.0-44.0); LYMPHOCYTE # 1.3 TH/MM3 (1.0-4.8); MEAN CELL VOLUME 86.7 FL (80.0-100.0); MEAN CORPUSCULAR HEMOGLOBIN 29.2 PG (27.0-34.0); MEAN CORPUSCULAR HGB CONC 33.6 % (32.0-36.0); MEAN PLATELET VOLUME 8.9 FL (7.0-11.0); MONO % 4.5 % (0.0-8.0); MONOCYTE # 0.6 TH/MM3 (0-0.9); PLATELET COUNT 280 TH/MM3 (150-450); RED BLOOD COUNT 4.31 MIL/MM3 (4.00-5.30); RED CELL DISTRIBUTION WIDTH 13.1 % (11.6-17.2); WHITE BLOOD COUNT 13.4 TH/MM3 (4.0-11.0)
[2016-12-05 18:40] LABS: BACTERIA, URINE RARE /hpf; BILIRUBIN, URINE NEG (NEG); BLOOD, URINE LARGE (NEG); GLUCOSE,URINE NEG (NEG); KETONE, URINE NEG (NEG); MUCUS URINE MANY /lpf (OCC); NITRITE,URINE NEG (NEG); PH, URINE 5.5 (5.0-8.5); SQUAMOUS EPITHELIAL CELL URINE 18 /hpf (0-5); URINE COLOR YELLOW (YELLW/STRAW); URINE LEUKOCYTE ESTERASE MOD (NEG)
[2016-12-05 19:09] LABS: BICARBONATE 28.9 MEQ/L (21.0-32.0); CALCIUM 9.1 MG/DL (8.5-10.1); CREATININE 0.78 MG/DL (0.50-1.00)
[2016-12-05] MEDS ORDERED: CEPH-460 PO ×2 (19:25)
[2016-12-05] MEDS ORDERED: POTASSIUM CHLORIDE 20 MEQ CONTROLLED RELEASE TAB PO ONE ×2 (19:30)
[2016-12-05 21:00] VITALS: BP 100/68; PULSE 68; RESP 16; O2SAT 99
--- NOTE | 2016-12-05 23:03 | EKG ---
Date Performed: 12/05/2016 Time Performed: 18:25:56 PTAGE: 26 years EKG: Sinus rhythm NORMAL ECG PREVIOUS TRACING : 01/13/2016 15.53 Compared to prior tracing no significant change DOCTOR: Jovi Aldana Interpretating Date/Time 12/05/2016 23:02:17
== END 2016-12-05 21:01 | disposition home or self-care (01) ==
LOC: NEPD 16:55
DX: N39.0 Urinary tract infection, site not specified (principal); B96.4 Proteus (mirabilis) (morganii) as the cause of diseases classified elsewhere; E87.6 Hypokalemia
CPT/HCPCS: 80048; 80307; 81001; 84703; 85025; 87077; 87086; 87186; 93005; 96360; 99284; J7030

== ENCOUNTER 2016-12-15 15:18 | Emergency (ER) | payer SELFPAY ==
[~2016-12-15] VITALS: Ht 160 cm; Wt 50.0 kg
[~2016-12-15 15:18] MED LIST changes: +CEPH-460 PO; -LOPE2CAP PO; -ZOFR4TAB3 SL
[2016-12-15 15:20] VITALS: BP 136/92; PULSE 71; RESP 16; TEMP 97.8; O2SAT 100
[2016-12-15] MEDS ORDERED: SODIUM CHLOR 0.9% 1000 ML INJ 1,000 ML IV SCH (17:37)
--- NOTE | 2016-12-15 17:43 | PD ---
HPI Chief Complaint: Dizziness Time Seen by Provider: 17:21 Travel History International Travel<30 days: No Contact w/Intl Traveler<30days: No Traveled to known affect area: No History of Present Illness HPI 26-year-old female here for episodes of dizziness. The patient reports that she was seen in the emergency department last week for similar symptoms and was told that she had a UTI. She was given antibiotics, and states that her UTI symptoms have resolved. She reports intermittent episodes of dizziness/ lightheadedness that are worse with movements, better with rest. No fevers, chills, cough, recent illness. No paresthesias or motor deficits. No visual disturbances. No chest pain. She does become slightly short of breath when these episodes occur. No abdominal pain. PFSH Past Medical History Medical History: Denies Significant Hx Hx Anticoagulant Therapy: No Anxiety: Yes Depression: Yes Cardiovascular Problems: No Chemotherapy: No Cerebrovascular Accident: No Diabetes: No Diminished Hearing: No Psychiatric: Yes Respiratory: No Immunizations Current: No ?: Not LMP: 12/10/16 : 1 Para: 0 Miscarriage: 1 : 0 Past Surgical History Surgical History: No Previous Surgery Hysterectomy: No Social History Alcohol Use: Yes (occ) Tobacco Use: No Substance Use: No Allergies-Medications (Allergen,Severity, Reaction): Coded Allergies: No Known Allergies (Unverified Adverse Reaction, Unknown, 12/15/16) Reported Meds & Prescriptions Reported Meds & Active Scripts Active Keflex (Cephalexin) 500 Mg Cap 500 Mg PO Q12H 7 Days Review of Systems Except as stated in HPI: all other systems reviewed are Neg Physical Exam Narrative GENERAL: Well-developed, well-nourished, comfortable, no apparent distress. SKIN: Focused skin assessment warm/dry. HEAD: Atraumatic. Normocephalic. EYES: Pupils equal, round, 3 mm, reactive to light. EOMI. No scleral icterus. No injection or drainage. ENT: No nasal bleeding or discharge. Mucous membranes pink and moist. Bilateral TMs and external canals are normal. NECK: Trachea midline. No JVD. No nuchal rigidity. CARDIOVASCULAR: Regular rate and rhythm. RESPIRATORY: No accessory muscle use. Clear to auscultation. Breath sounds equal bilaterally. GASTROINTESTINAL: Abdomen soft, non-tender, nondistended. MUSCULOSKELETAL: No obvious deformities. No clubbing. No cyanosis. No edema. NEUROLOGICAL: Awake and alert. No obvious cranial nerve deficits. Motor grossly within normal limits. Normal speech. No focal deficits. PSYCHIATRIC: Appropriate mood and affect; insight and judgment normal. Data Data Last Documented VS Vital Signs Date Time Temp Pulse Resp B/P (MAP) Pulse Ox O2 Delivery O2 Flow Rate FiO2 12/15/16 18:07 69 18 116/75 (89) 100 Room Air 12/15/16 15:20 97.8 Orders Orders Complete Blood Count With Diff (12/15/16 17:37) Comprehensive Metabolic Panel (12/15/16 17:37) Prothrombin Time / Inr (Pt) (12/15/16 17:37) Act Partial Throm Time (Ptt) (12/15/16 17:37) Urinalysis - C+S If Indicated (12/15/16 17:37) Iv Access Insert/Monitor (12/15/16 17:37) Ecg Monitoring (12/15/16 17:37) Oximetry (12/15/16 17:37) Sodium Chlor 0.9% 1000 Ml Inj (Ns 1000 M (12/15/16 17:37) Sodium Chloride 0.9% Flush (Ns Flush) (12/15/16 17:45) Electrocardiogram (12/15/16 17:37) Ed Urine Pregnancytest Poc (12/15/16 17:37) Orthostatic Vital Signs (12/15/16 17:38) Ct Brain W/O Iv Contrast(Rout) (12/15/16 ) Potassium Chloride (Kcl) (12/15/16 19:15) Labs Laboratory Tests Test 12/15/16 18:01 White Blood Count 7.0 TH/MM3 Red Blood Count 4.41 MIL/MM3 Hemoglobin 12.8 GM/DL Hematocrit 37.7 % Mean Corpuscular Volume 85.5 FL Mean Corpuscular Hemoglobin 28.9 PG Mean Corpuscular Hemoglobin Concent 33.8 % Red Cell Distribution Width 13.2 % Platelet Count 250 TH/MM3 Mean Platelet Volume 8.4 FL Neutrophils (%) (Auto) 65.3 % Lymphocytes (%) (Auto) 25.7 % Monocytes (%) (Auto) 5.2 % Eosinophils (%) (Auto) 2.9 % Basophils (%) (Auto) 0.9 % Neutrophils # (Auto) 4.6 TH/MM3 Lymphocytes # (Auto) 1.8 TH/MM3 Monocytes # (Auto) 0.4 TH/MM3 Eosinophils # (Auto) 0.2 TH/MM3 Basophils # (Auto) 0.1 TH/MM3 CBC Comment DIFF FINAL Differential Comment Prothrombin Time 12.2 SEC Prothromb Time International Ratio 1.1 RATIO Activated Partial Thromboplast Time 29.1 SEC Urine Color YELLOW Urine Turbidity HAZY Urine pH 6.5 Urine Specific [place] 1.023 Urine Protein NEG mg/dL Urine Glucose (UA) NEG mg/dL Urine Ketones TRACE mg/dL Urine Occult Blood NEG Urine Nitrite NEG Urine Bilirubin NEG Urine Urobilinogen LESS THAN 2.0 MG/DL Urine Leukocyte Esterase SMALL Urine RBC 3 /hpf Urine WBC 4 /hpf Urine Squamous Epithelial Cells 2 /hpf Urine Mucus FEW /lpf Microscopic Urinalysis Comment CULT NOT INDICATED Blood Urea Nitrogen 9 MG/DL Creatinine 0.73 MG/DL Random Glucose 73 MG/DL Total Protein 7.5 GM/DL Albumin 4.1 GM/DL Calcium Level 8.6 MG/DL Alkaline Phosphatase 44 U/L Aspartate Amino Transf (AST/SGOT) 13 U/L Alanine Aminotransferase (ALT/SGPT) 17 U/L Total Bilirubin 0.5 MG/DL Sodium Level 141 MEQ/L Potassium Level 3.1 MEQ/L Chloride Level 106 MEQ/L Carbon Dioxide Level 26.9 MEQ/L Anion Gap 8 MEQ/L Estimat Glomerular Filtration Rate 97 ML/MIN [facility] Medical Decision Making Medical Screen Exam Complete: Yes Emergency Medical Condition: Yes Medical Record Reviewed: Yes Interpretation(s) EKG: Sinus, rate 58, normal axis, normal intervals, no acute ischemic abnormality. Differential Diagnosis UTI, metabolic abnormality, intracranial abnormality, dysrhythmia, vertigo Narrative Course Vital signs show heart rate 71, blood pressure 136/92, pulse ox 100% on room air , oral temp of 97.8F. Orthostatic vital signs were performed and the patient does not have significant drop in blood pressure or rise in heart rate. CBC is unremarkable. CMP is remarkable for potassium 3.1, otherwise unremarkable. Urine test is negative. UA is not suggestive of UTI. CT head: Normal exam. Patient was made aware of all findings. On reassessment she is resting comfortably and is texting on her cell phone. Potassium replaced orally. She is stable for discharge home with outpatient follow-up with a primary care physician this week. She was informed on when to return to the emergency department. She verbalizes understanding and agreement with plan. Diagnosis Primary Impression: Dizziness Additional Impression: Hypokalemia Referrals: Primary Care Physician 3 days Additional Instructions: Follow-up with a primary care physician this week. Return to the emergency department for worsening symptoms or any other concerns. Disposition: 01 DISCHARGE HOME Condition: Stable Eric Schwartz MD Dec 15, 2016 17:43
[2016-12-15] MEDS ORDERED: SODIUM CHLORIDE 0.9% FLUSH 10 ML FLUSH IV FLUSH PRN (17:45)
[2016-12-15 18:05] VITALS: BP 112/69; RESP 16
[2016-12-15 18:06] VITALS: BP_SYST 104; BP_SYST 116; BP_DIAS 68; BP_DIAS 75; RESP 16
[2016-12-15 18:07] VITALS: BP 116/75; PULSE 69; RESP 18; O2SAT 100
--- NOTE | 2016-12-15 18:38 | RADRPT ---
EXAM DATE/TIME: 12/15/2016 18:12 [place] COMPARISON: CT BRAIN W/O CONTRAST, September 09, 2015, 2:35. INDICATIONS : Dizziness for one week. RADIATION DOSE: 56.35 CTDIvol (mGy) MEDICAL HISTORY : None SURGICAL HISTORY : None. ENCOUNTER: Initial ACUITY: 1 day PAIN SCALE: 0/10 LOCATION: Bilateral head TECHNIQUE: Multiple contiguous axial images were obtained of the head. Using automated exposure control and adj ustment of the mA and/or kV according to patient size, radiation dose was kept as low as reasonably a chievable to obtain optimal diagnostic quality images. DICOM format image data is available electro nically for review and comparison. FINDINGS: CEREBRUM: The ventricles are normal for age. No evidence of midline shift, mass lesion, hemorrhage or acute in farction. No extra-axial fluid collections are seen. POSTERIOR FOSSA: The cerebellum and brainstem are intact. The 4th ventricle is midline. The cerebellopontine angle i s unremarkable. EXTRACRANIAL: The visualized portion of the orbits is intact. SKULL: The calvaria is intact. No evidence of skull fracture. CONCLUSION: Normal examination. Judah Cheng MD on December 15, 2016 at 18:35 Board Certified Radiologist. This report was verified electronically.
[2016-12-15 18:46] LABS: AUTOMATED NEUTROPHIL # 4.6 TH/MM3 (1.8-7.7); BASOPHIL # 0.1 TH/MM3 (0-0.2); BASOPHIL % 0.9 % (0.0-2.0); EOSINOPHIL # 0.2 TH/MM3 (0-0.4); EOSINOPHIL % 2.9 % (0.0-4.0); HEMATOCRIT 37.7 % (35.0-46.0); HEMO FLAGS DIFF FINAL; LYMPH % 25.7 % (9.0-44.0); LYMPHOCYTE # 1.8 TH/MM3 (1.0-4.8); MEAN CELL VOLUME 85.5 FL (80.0-100.0); MEAN CORPUSCULAR HEMOGLOBIN 28.9 PG (27.0-34.0); MEAN CORPUSCULAR HGB CONC 33.8 % (32.0-36.0); MONO % 5.2 % (0.0-8.0); NEUT % 65.3 % (16.0-70.0); PLATELET COUNT 250 TH/MM3 (150-450); RED BLOOD COUNT 4.41 MIL/MM3 (4.00-5.30); RED CELL DISTRIBUTION WIDTH 13.2 % (11.6-17.2)
[2016-12-15 18:48] LABS: BLOOD, URINE NEG (NEG); GLUCOSE,URINE NEG (NEG); KETONE, URINE TRACE mg/dL (NEG); MUCUS URINE FEW /lpf (OCC); NITRITE,URINE NEG (NEG); PH, URINE 6.5 (5.0-8.5); SQUAMOUS EPITHELIAL CELL URINE 2 /hpf (0-5); URINE COLOR YELLOW (YELLW/STRAW)
[2016-12-15 18:49] LABS: COMMENT (UR) CULT NOT INDICATED; CULTURE IF INDICATED CULT NOT INDICATED
[2016-12-15 18:58] LABS: ALT (GPT) 17 U/L (10-53); ANION GAP 8 MEQ/L (5-15); AST (GOT) 13 U/L (15-37); BICARBONATE 26.9 MEQ/L (21.0-32.0); BLOOD UREA NITROGEN 9 MG/DL (7-18); CHLORIDE 106 MEQ/L (98-107); GLOMERULAR FILTRATION RATE 97 ML/MIN (>89); POTASSIUM 3.1 MEQ/L (3.5-5.1); SODIUM (NA) 141 MEQ/L (136-145)
[2016-12-15 18:59] LABS: ALKALINE PHOSPHATASE 44 U/L (45-117); TOTAL BILIRUBIN ADULT 0.5 MG/DL (0.2-1.0)
[2016-12-15 19:03] LABS: INTERNATIONAL NORMALIZED RATIO 1.1 RATIO; PROTHROMBIN TIME - PATIENT 12.2 SEC (9.8-11.6)
[2016-12-15 19:04] LABS: APTT (PATIENT) 29.1 SEC (24.3-30.1)
[2016-12-15] MEDS ORDERED: POTASSIUM CHLORIDE 20 MEQ CONTROLLED RELEASE TAB PO ONE (19:15)
--- NOTE | 2016-12-15 21:09 | EKG ---
Date Performed: 12/15/2016 Time Performed: 18:09:24 PTAGE: 26 years EKG: SINUS BRADYCARDIA BORDERLINE ECG NO PREVIOUS TRACING DOCTOR: Boo Li Interpretating Date/Time 12/15/2016 21:07:48
== END 2016-12-15 19:29 | disposition home or self-care (01) ==
LOC: NEPD 15:18
DX: R42 Dizziness and giddiness (principal); E87.6 Hypokalemia; F41.9 Anxiety disorder, unspecified; F32.9 Major depressive disorder, single episode, unspecified; R00.1 Bradycardia, unspecified
CPT/HCPCS: 70450; 80053; 81001; 84703; 85025; 85610; 85730; 93005; 96360; 99285; J7030

== ENCOUNTER 2017-02-07 10:25 | Emergency (ER) | payer SELFPAY ==
[~2017-02-07] VITALS: Ht 160 cm; Wt 45.5 kg
[2017-02-07 10:26] VITALS: BP 118/75; PULSE 76; RESP 16; TEMP 99; O2SAT 99
--- NOTE | 2017-02-07 11:03 | PD ---
HPI Chief Complaint: Anxiety Time Seen by Provider: 10:47 Travel History International Travel<30 days: No Contact w/Intl Traveler<30days: No Traveled to known affect area: No History of Present Illness HPI 36-year-old female presents to the emergency Department with complaint of intermittent right-sided chest tightening and shortness of breath after crying for approximately 30 minutes today since proximally 7 AM this morning. Says she thinks she is having anxiety, but denies history of anxiety. Reports after crying and calming down she developed right chest tightness. Reports a little shortness of breath at this time. Says the shortness of breath comes and goes and is worse when she thinks about what she was crying about. Denies fever, vomiting. Denies history of chest pain. Denies cardiac history. No radiation of pain. Denies hemoptysis. Denies history of DVT/PE. Denies leg edema. Denies recent travel or surgeries. Denies anticoagulant therapy. Denies oral contraception. Rates pain 10. Describes it as a stabbing sensation and a pressure someone is sitting on her chest. Has not taken any medication or trying to alleviate her symptoms. Worse with movement of the right arm, deep breathing, palpation of the right lateral chest/rib cage area. No known relieving factors. Denies significant past medical history. No known allergies. Does not establish primary care provider. Has no medical complaints. No other modifying factors or associated signs and symptoms. PFSH Past Medical History Hx Anticoagulant Therapy: No Anxiety: Yes Depression: Yes Cardiovascular Problems: No Chemotherapy: No Cerebrovascular Accident: No Diabetes: No Diminished Hearing: No Psychiatric: Yes Respiratory: No Immunizations Current: No ?: Not LMP: CURRENTLY ON MENSTRUAL CYCLE : 1 Para: 0 Miscarriage: 1 : 0 Past Surgical History Surgical History: No Previous Surgery Hysterectomy: No Social History Alcohol Use: Yes (occ) Tobacco Use: No Substance Use: No Allergies-Medications (Allergen,Severity, Reaction): Coded Allergies: No Known Allergies (Unverified Adverse Reaction, Unknown, 02/07/17) Reported Meds & Prescriptions Reported Meds & Active Scripts Active Robaxin (Methocarbamol) 500 Mg Tab 500 Mg PO QID PRN Ibuprofen 600 Mg Tab 600 Mg PO Q6H PRN Review of Systems Except as stated in HPI: all other systems reviewed are Neg Physical Exam Narrative GENERAL: Well-nourished, well-developed thin, female patient, in no acute distress SKIN: Warm and dry. HEAD: Atraumatic. Normocephalic. EYES: Pupils equal and round. No scleral icterus. No injection or drainage. ENT: Mucosa pink and moist. Airway patent. NECK: Trachea midline. CHEST: Producible tenderness to the right lateral rib cage area; without deformity or crepitance. No retractions or use of accessory muscles. CARDIOVASCULAR: Regular rate and rhythm. No murmur appreciated. RESPIRATORY: No accessory muscle use. Right lower lung base is decreased when compared to the left; otherwise clear to auscultation. No retractions or tachypnea. GASTROINTESTINAL: Abdomen soft, non-tender, nondistended. Hepatic and splenic margins not palpable. Bowel sounds are active 4 quadrants. MUSCULOSKELETAL: No obvious deformities. No clubbing. No cyanosis. No edema. NEUROLOGICAL: Awake and alert. Oriented 3. No obvious cranial nerve deficits. Motor grossly within normal limits. Normal speech. PSYCHIATRIC: Appropriate mood and affect; insight and judgment normal. Data Data Last Documented VS Vital Signs Date Time Temp Pulse Resp B/P (MAP) Pulse Ox O2 Delivery O2 Flow Rate FiO2 02/07/17 12:06 02/07/17 10:26 99.0 76 16 99 Room Air Orders Orders Electrocardiogram (02/07/17 11:09) Chest, Pa & Lat (02/07/17 11:09) Ibuprofen (Motrin) (02/07/17 11:15) Ed Discharge Order (02/07/17 11:56) MDM Medical Decision Making Medical Screen Exam Complete: Yes Emergency Medical Condition: Yes Medical Record Reviewed: Yes Differential Diagnosis Pneumothorax, anxiety, muscle strain, less likely PE Narrative Course A 6-year-old female with intermittent right-sided chest pain and shortness of breath after a crying episode for 30 minutes this morning. She is in no acute distress and her oxygen saturation is 99% on room air. No retractions or tachypnea. Chest x-ray and EKG ordered. Using the PERC for pulmonary embolism the patient's criteria is zero; If no criteria are positive and clinicians pre- test probability is <15%, PERC Rule criteria are satisfied and there is no need for further workup. 1147: EKG with normal sinus rhythm and short IN interval; no ST elevation or depression; reviewed by Dr. Silverio. Chest x-ray concludes: No acute cardiopulmonary disease. I discussed the patient with Dr. Silverio and he agrees with discharge. Ibuprofen and Robaxin prescribed for home. Instructed patient to follow up with primary care provider. Patient verbalizes understanding and agreement with treatment plan. Patient is medically cleared and stable for discharge. Discussed reasons to return to the emergency department. Patient agrees with treatment plan. The patients vital signs are stable and the patient is stable for outpatient follow-up and treatment. Patient discharged home, stable and in no acute distress. Diagnosis Primary Impression: Right-sided chest wall pain Additional Impression: Shortness of breath Referrals: Primary Care Physician Patient Instructions: Anxiety (ED), Chest Wall Pain (ED), General Instructions , Muscle Strain (ED), Shortness of Breath (ED) Departure Forms: Tests/Procedures, Work Release Enter return to work date: Feb 08, 2017 Additional Instructions: Ibuprofen or Tylenol as directed and as needed to reduce pain Robaxin as prescribed and as needed to reduce muscle spasms Heating pad and/or ice to affected area to reduce pain Avoid aggravating activities; increase activity as tolerated Gentle stretching to the affected muscle may be helpful Follow-up with a primary care provider Return to the emergency department immediately with worsening of symptoms Med/Other Pt SpecificInfo: Prescription(s) given Scripts Methocarbamol (Robaxin) 500 Mg Tab 500 MG PO QID Y for MUSCLE SPASM, #20 TAB 0 Refills Prov: Philomena Hastings 02/07/17 Ibuprofen (Ibuprofen) 600 Mg Tab 600 MG PO Q6H Y for PAIN, #20 TAB 0 Refills Prov: Philomena Hastings 02/07/17 Disposition: 01 DISCHARGE HOME Condition: Stable Philomena Hastings Feb 07, 2017 11:03
[2017-02-07] MEDS ORDERED: IBUPROFEN 800 MG TAB PO ONE (11:15)
--- NOTE | 2017-02-07 11:44 | RADRPT ---
EXAM DATE/TIME: 02/07/2017 11:30 [facility] COMPARISON: No previous studies available for comparison. INDICATIONS : Right sided chest pain. MEDICAL HISTORY : None. SURGICAL HISTORY : None. ENCOUNTER: Initial ACUITY: 1 day PAIN SCORE: 7/10 LOCATION: Right chest FINDINGS: PA and lateral views of the chest demonstrate the lungs to be symmetrically aerated without evidence of mass, infiltrate or effusion. The cardiomediastinal contours are unremarkable. Osseous structure s are intact. CONCLUSION: 1. No acute cardiopulmonary disease. Soren Back MD on February 07, 2017 at 11:42 Board Certified Radiologist. This report was verified electronically.
[2017-02-07] MEDS ORDERED: ROBA500T PO (11:55)
[2017-02-07] MEDS ORDERED: IBUP-232 PO (11:55)
--- NOTE | 2017-02-09 12:43 | EKG ---
Date Performed: 02/07/2017 Time Performed: 11:42:32 PTAGE: 26 years EKG: Sinus rhythm WITH SHORT CA INTERVAL Compared to prior tracing no significant change BORDERLINE ECG PREVIOUS TRACING : 12/15/2016 18.09 DOCTOR: Justin Jenkins Interpretating Date/Time 02/09/2017 12:43:00
== END 2017-02-07 12:20 | disposition home or self-care (01) ==
LOC: NEPD 10:25
DX: R07.89 Other chest pain (principal); R06.02 Shortness of breath; F41.9 Anxiety disorder, unspecified; F32.9 Major depressive disorder, single episode, unspecified
CPT/HCPCS: 71020; 93005; 99283

== ENCOUNTER 2017-06-22 05:58 | Emergency (ER) | payer SELFPAY ==
[~2017-06-22] VITALS: Ht 160 cm; Wt 45.0 kg
[~2017-06-22 05:58] MED LIST changes: -CEPH-460 PO; +IBUP-232 PO; +ROBA500T PO
[2017-06-22] MEDS ORDERED: IOHEXOL 350 MG/ML 10 ML VIAL (for RAD DIAG) IVCONTRAST ONE (05:59)
[2017-06-22 06:11] VITALS: BP 138/63; PULSE 96; RESP 18; TEMP 97.2; O2SAT 99
[2017-06-22 06:22] VITALS: PULSE 75; RESP 20; O2SAT 99
[2017-06-22] MEDS ORDERED: SODIUM CHLOR 0.9% 1000 ML INJ 1,000 ML IV SCH (06:23)
[2017-06-22] MEDS ORDERED: SODIUM CHLORIDE 0.9% FLUSH 10 ML FLUSH IV FLUSH PRN (06:30)
[2017-06-22] MEDS ORDERED: FAMOTIDINE 20 MG/2 ML VIAL IV PUSH ONE (06:30)
[2017-06-22] MEDS ORDERED: METOCLOPRAMIDE HCL 10 MG/2 ML VIAL IV PUSH ONE (06:30)
--- NOTE | 2017-06-22 06:31 | PD ---
HPI Chief Complaint: GI Complaint Time Seen by Provider: 06:29 Travel History International Travel<30 days: No Contact w/Intl Traveler<30days: No Traveled to known affect area: No History of Present Illness HPI 26-year-old female patient presents to the ER today for left upper quadrant abdominal pains, nausea, vomiting, diarrhea starting at 3 AM. She apparently had gone to a [employer] service yesterday and had been drinking on an empty stomach. She states that the pain is currently a 10 out of 10 and cramping. She denies any fevers or other issues. They did not know any sick contacts. Modifying Factors: None Associated Signs & Symptoms: Left upper quadrant abdominal pains, nausea, vomiting, diarrhea Risk Factors: Recent alcohol use PFSH Past Medical History Hx Anticoagulant Therapy: No Anxiety: Yes Depression: Yes Cardiovascular Problems: No Chemotherapy: No Cerebrovascular Accident: No Diabetes: No Diminished Hearing: No Psychiatric: Yes Respiratory: No Immunizations Current: No Tetanus Vaccination: < 5 Years Influenza Vaccination: No ?: Unknown LMP: unsure : 1 Para: 0 Miscarriage: 1 : 0 Past Surgical History Surgical History: No Previous Surgery Hysterectomy: No Social History Alcohol Use: Yes (occ) Tobacco Use: No Substance Use: No Allergies-Medications (Allergen,Severity, Reaction): Coded Allergies: No Known Allergies (Unverified Adverse Reaction, Unknown, 06/22/17) Reported Meds & Prescriptions Reported Meds & Active Scripts Active Robaxin (Methocarbamol) 500 Mg Tab 500 Mg PO QID PRN Ibuprofen 600 Mg Tab 600 Mg PO Q6H PRN Review of Systems Except as stated in HPI: all other systems reviewed are Neg Physical Exam Narrative GENERAL: Well-developed young female patient currently in mild to moderate distress. Awake and oriented 3. SKIN: Focused skin assessment warm/dry. HEAD: Atraumatic. Normocephalic. EYES: Pupils equal and round. No scleral icterus. No injection or drainage. ENT: No nasal bleeding or discharge. Mucous membranes pink and moist. NECK: Trachea midline. No JVD. Supple. CARDIOVASCULAR: Regular rate and rhythm. No murmur appreciated. RESPIRATORY: No accessory muscle use. Clear to auscultation. Breath sounds equal bilaterally. GASTROINTESTINAL: Abdomen soft, mild left upper quadrant tenderness without guarding rebound, nondistended. Hepatic and splenic margins not palpable. MUSCULOSKELETAL: No obvious deformities. No clubbing. No cyanosis. No edema. NEUROLOGICAL: Awake and alert. No obvious cranial nerve deficits. Motor grossly within normal limits. Normal speech. PSYCHIATRIC: Appropriate mood and affect; insight and judgment normal. Data Data Last Documented VS Vital Signs Date Time Temp Pulse Resp B/P (MAP) Pulse Ox O2 Delivery O2 Flow Rate FiO2 06/22/17 06:22 75 20 99 Room Air 06/22/17 06:11 97.2 Orders Orders Complete Blood Count With Diff (06/22/17:23) Comprehensive Metabolic Panel (06/22/17:23) Lipase (06/22/17:23) Urinalysis - C+S If Indicated (06/22/17:23) Iv Access Insert/Monitor (06/22/17:23) Ecg Monitoring (06/22/17:23) Oximetry (06/22/17:23) Sodium Chlor 0.9% 1000 Ml Inj (Ns 1000 M (06/22/17:23) Sodium Chloride 0.9% Flush (Ns Flush) (06/22/17 06:30) Famotidine Inj (Pepcid Inj) (06/22/17 06:30) Ed Urine Pregnancytest Poc (06/22/17 06:23) Metoclopramide Inj (Reglan Inj) (06/22/17 06:30) Labs Laboratory Tests Test 06/22/17 06:50 [facility] Medical Decision Making Medical Screen Exam Complete: Yes Emergency Medical Condition: Yes Medical Record Reviewed: Yes Differential Diagnosis Gastritis versus gastroenteritis versus pancreatitis versus dehydration Narrative Course IV fluids, Reglan, and lab work was ordered for the patient. Physician Communication Physician Communication Case is signed out to oncoming physician at 7 AM pending workup. Diagnosis Primary Impression: Nausea & vomiting Condition: Stable Becka Ortega MD June 22, 2017 06:31
[2017-06-22 07:12] LABS: AUTOMATED NEUTROPHIL # 6.1 TH/MM3 (1.8-7.7); BASOPHIL # 0.1 TH/MM3 (0-0.2); BASOPHIL % 0.7 % (0.0-2.0); EOSINOPHIL # 0.2 TH/MM3 (0-0.4); EOSINOPHIL % 1.9 % (0.0-4.0); HEMATOCRIT 36.9 % (35.0-46.0); HEMOGLOBIN 12.8 GM/DL (11.6-15.3); LYMPH % 15.7 % (9.0-44.0); LYMPHOCYTE # 1.3 TH/MM3 (1.0-4.8); MEAN CELL VOLUME 83.4 FL (80.0-100.0); MEAN CORPUSCULAR HEMOGLOBIN 28.9 PG (27.0-34.0); MEAN CORPUSCULAR HGB CONC 34.7 % (32.0-36.0); MEAN PLATELET VOLUME 8.5 FL (7.0-11.0); MONOCYTE # 0.4 TH/MM3 (0-0.9); NEUT % 76.7 % (16.0-70.0); PLATELET COUNT 318 TH/MM3 (150-450); RED BLOOD COUNT 4.43 MIL/MM3 (4.00-5.30); WHITE BLOOD COUNT 7.9 TH/MM3 (4.0-11.0)
[2017-06-22 07:36] LABS: ALBUMIN 4.2 GM/DL (3.4-5.0); ALT (GPT) 31 U/L (10-53); AST (GOT) 30 U/L (15-37); BLOOD UREA NITROGEN 11 MG/DL (7-18); CALCIUM 8.7 MG/DL (8.5-10.1); CHLORIDE 108 MEQ/L (98-107); CREATININE 0.83 MG/DL (0.50-1.00); GLOMERULAR FILTRATION RATE 84 ML/MIN (>89); GLUCOSE,RANDOM 100 MG/DL (74-106); SODIUM (NA) 144 MEQ/L (136-145)
[2017-06-22 07:38] LABS: ALKALINE PHOSPHATASE 39 U/L (45-117); TOTAL BILIRUBIN ADULT 0.5 MG/DL (0.2-1.0); TOTAL PROTEIN 7.7 GM/DL (6.4-8.2)
[2017-06-22 09:27] LABS: BACTERIA, URINE RARE /hpf; BILIRUBIN, URINE NEG (NEG); BLOOD, URINE TRACE (NEG); GLUCOSE,URINE NEG (NEG); KETONE, URINE 10 mg/dL (NEG); MUCUS URINE FEW /lpf (OCC); NITRITE,URINE POS (NEG); RENAL EPITHELIAL CELLS <1 /hpf; SQUAMOUS EPITHELIAL CELL URINE 4 /hpf (0-5); URINE COLOR LIGHT-YELLOW (YELLW/STRAW); URINE LEUKOCYTE ESTERASE NEG (NEG)
[2017-06-22] MEDS ORDERED: ONDANSETRON ODT 4 MG TAB PO ONE (10:15)
[2017-06-22 10:30] VITALS: BP 106/60; PULSE 65; RESP 18; O2SAT 100
[2017-06-22] MEDS ORDERED: PROMETHAZINE INJ 25 MG/ML VIAL IM ONE (10:30)
[2017-06-22] MEDS ORDERED: MORPHINE SULFATE 4 MG/ML INJ IV PUSH ONE (10:30)
--- NOTE | 2017-06-22 10:32 | PD ---
Data Data Last Documented VS Vital Signs Date Time Temp Pulse Resp B/P (MAP) Pulse Ox O2 Delivery O2 Flow Rate FiO2 06/22/17 10:30 65 18 106/60 (75) 100 Room Air 06/22/17 06:11 97.2 Orders Orders Complete Blood Count With Diff (06/22/17 06:23) Comprehensive Metabolic Panel (06/22/17 06:23) Lipase (06/22/17 06:23) Urinalysis - C+S If Indicated (06/22/17 06:23) Iv Access Insert/Monitor (06/22/17 06:23) Ecg Monitoring (06/22/17 06:23) Oximetry (06/22/17 06:23) Sodium Chlor 0.9% 1000 Ml Inj (Ns 1000 M (06/22/17 06:23) Sodium Chloride 0.9% Flush (Ns Flush) (06/22/17 06:30) Famotidine Inj (Pepcid Inj) (06/22/17 06:30) Ed Urine Pregnancytest Poc (06/22/17 06:23) Metoclopramide Inj (Reglan Inj) (06/22/17 06:30) Urine Culture (06/22/17 09:00) Ondansetron Odt (Zofran Odt) (06/22/17 10:15) Promethazine Inj (Phenergan Inj) (06/22/17 10:30) Morphine Inj (Morphine Inj) (06/22/17 10:30) Ct Abd/Pel W Iv Contrast(Rout) (06/22/17 ) Iohexol 350 Inj (Omnipaque 350 Inj) (06/22/17 05:59) Labs Laboratory Tests Test 06/22/17 06:50 06/22/17 09:00 White Blood Count 7.9 TH/MM3 Red Blood Count 4.43 MIL/MM3 Hemoglobin 12.8 GM/DL Hematocrit 36.9 % Mean Corpuscular Volume 83.4 FL Mean Corpuscular Hemoglobin 28.9 PG Mean Corpuscular Hemoglobin Concent 34.7 % Red Cell Distribution Width 13.0 % Platelet Count 318 TH/MM3 Mean Platelet Volume 8.5 FL Neutrophils (%) (Auto) 76.7 % Lymphocytes (%) (Auto) 15.7 % Monocytes (%) (Auto) 5.0 % Eosinophils (%) (Auto) 1.9 % Basophils (%) (Auto) 0.7 % Neutrophils # (Auto) 6.1 TH/MM3 Lymphocytes # (Auto) 1.3 TH/MM3 Monocytes # (Auto) 0.4 TH/MM3 Eosinophils # (Auto) 0.2 TH/MM3 Basophils # (Auto) 0.1 TH/MM3 CBC Comment DIFF FINAL Differential Comment Blood Urea Nitrogen 11 MG/DL Creatinine 0.83 MG/DL Random Glucose 100 MG/DL Total Protein 7.7 GM/DL Albumin 4.2 GM/DL Calcium Level 8.7 MG/DL Alkaline Phosphatase 39 U/L Aspartate Amino Transf (AST/SGOT) 30 U/L Alanine Aminotransferase (ALT/SGPT) 31 U/L Total Bilirubin 0.5 MG/DL Sodium Level 144 MEQ/L Potassium Level 3.7 MEQ/L Chloride Level 108 MEQ/L Carbon Dioxide Level 25.0 MEQ/L Anion Gap 11 MEQ/L Estimat Glomerular Filtration Rate 84 ML/MIN Lipase 112 U/L Urine Color LIGHT-YELLOW Urine Turbidity CLEAR Urine pH 7.0 Urine Specific [place] 1.014 Urine Protein NEG mg/dL Urine Glucose (UA) NEG mg/dL Urine Ketones 10 mg/dL Urine Occult Blood TRACE Urine Nitrite POS Urine Bilirubin NEG Urine Urobilinogen LESS THAN 2.0 MG/DL Urine Leukocyte Esterase NEG Urine WBC 3 /hpf Urine Squamous Epithelial Cells 4 /hpf Urine Renal Epithelial Cells <1 /hpf Urine Bacteria RARE /hpf Urine Mucus FEW /lpf Microscopic Urinalysis Comment CULTURE INDICATED MDM Supervised Visit with JULIO: No Narrative Course This case is checked out to me by Dr. Moore at 7 AM The patient was seen and examined in the presence of the nurse. Patient is still having nausea and vomiting and complains of significant bilateral lower quadrant abdominal pain. CBC and CMP are normal Urine is negative She received IV fluid and some other meds but is still nauseous I gave her a dose of Phenergan and morphine for symptom relief I did a pelvic examination which shows no evidence of PID or infection. No cervical motion tenderness but bilateral adnexal area tenderness is present CT of abdomen and pelvis with IV contrast is ordered to rule out appendicitis or colitis I discussed the CT results with radiologist. Appendix looks okay. No colitis. There are several findings that are chronic from 2016 this includes some edema around the liver and some prominent ovarian follicles bilaterally. No evidence of torsion. On recheck the patient looks comfortable. Stable for outpatient follow-up. I reviewed the incidental findings with her and suggested she get a family doctor follow-up to start with Diagnosis Primary Impression: Abdominal pain Qualified Codes: R10.30 - Lower abdominal pain, unspecified Additional Impression: Nausea & vomiting Qualified Codes: R11.2 - Nausea with vomiting, unspecified Additional Instruction: The patient was advised to follow up with their physician and return if they worsen. I have recommended clear liquids for 24 hours, then gradually advance as tolerated. The patient was warned about potential sedation for the medications they will receive on prescription. Med/Other Pt SpecificInfo: Prescription(s) given Scripts Tramadol (Tramadol) 50 Mg Tab 50 MG PO Q6H Y for PAIN, #12 TAB 0 Refills Prov: Bradley Mayo MD 06/22/17 Ondansetron (Zofran) 4 Mg Tab 4 MG PO Q6HR Y for NAUSEA OR VOMITING, #12 TAB 0 Refills Prov: Bradley Mayo MD 06/22/17 Disposition: 01 DISCHARGE HOME Condition: Stable Bradley Mayo MD June 22, 2017 10:32
--- NOTE | 2017-06-22 11:04 | RADRPT ---
EXAM DATE/TIME: 06/22/2017 10:42 [facility] COMPARISON: CT ABDOMEN & PELVIS W CONTRAST, January 13, 2016, 13:14. INDICATIONS : Bilateral lower quadrant pain. IV CONTRAST: 71 cc Omnipaque 350 (iohexol) IV ORAL CONTRAST: No oral contrast ingested. RADIATION DOSE: 4.51 CTDIvol (mGy) MEDICAL HISTORY : None SURGICAL HISTORY : None. ENCOUNTER: Initial ACUITY: 1 day PAIN SCALE: 6/10 LOCATION: Bilateral lower quadrant TECHNIQUE: Volumetric scanning of the abdomen and pelvis was performed. Using automated exposure control and ad justment of the mA and/or kV according to patient size, radiation dose was kept as low as reasonably achievable to obtain optimal diagnostic quality images. DICOM format image data is available electro nically for review and comparison. FINDINGS: LOWER LUNGS: The visualized lower lungs are clear. LIVER: The liver demonstrates stable appearance of diffuse air or edema and mild enlargement. No evidence of concerning hepatic mass or biliary obstruction. The gallbladder is well-distended without evidence o f stones. SPLEEN: Normal size without lesion. PANCREAS: Within normal limits. KIDNEYS: Normal in size and shape. There is no mass, stone or hydronephrosis. ADRENAL GLANDS: Within normal limits. VASCULAR: There is no aortic aneurysm. BOWEL/MESENTERY: The stomach, small bowel, and colon demonstrate no acute abnormality. There is no free intraperitone al air or fluid. ABDOMINAL WALL: Within normal limits. RETROPERITONEUM: There is no lymphadenopathy. BLADDER: No wall thickening or mass. REPRODUCTIVE: There are multiple bilateral follicles identified within the ovaries. This appearance is similar to t hat seen on prior exam. The uterus is unremarkable. INGUINAL: There is no lymphadenopathy or hernia. MUSCULOSKELETAL: Within normal limits for patient age. CONCLUSION: 1. Bilateral multiple prominent follicles within the ovaries. This may represent polycystic ovarian s yndrome given the stability as compared to the exam of 2016. No evidence of concerning adnexal mass o r abnormal positioning to suggest torsion. 2. Persistent periportal edema and mild enlargement of the liver. This widening is also stable from 2 016. Correlate with patient's medical history for causes of possible hepatitis. Nelly Rosas MD on June 22, 2017 at 10:51 Board Certified Radiologist. This report was verified electronically.
[2017-06-22] MEDS ORDERED: ZOFR4TAB PO (12:32)
[2017-06-22] MEDS ORDERED: TRAM50TA PO (12:32)
[2017-06-22 13:27] VITALS: BP 113/61
== END 2017-06-22 13:31 | disposition home or self-care (01) ==
LOC: NEPC 05:58
DX: R10.30 Lower abdominal pain, unspecified (principal); R11.2 Nausea with vomiting, unspecified; R10.12 Left upper quadrant pain; R19.7 Diarrhea, unspecified; R82.99 Other abnormal findings in urine; B96.1 Klebsiella pneumoniae [K. pneumoniae] as the cause of diseases classified elsewhere; Z86.59 Personal history of other mental and behavioral disorders
CPT/HCPCS: 74177; 80053; 81001; 83690; 84703; 85025; 87077; 87086; 87186; 96361; 96374; 96375; 99285; J2270; J2765; J7030; Q9967